=== PATIENT | female | born 1995 | race Caucasian/White ===

== ENCOUNTER 2017-06-25 16:35 | Emergency (ER) | payer BC, MEDICAID | END 2017-06-25 17:38 | disposition home or self-care (01) | LOC: E/R 16:35 | DX: M25.562 Pain in left knee (principal); J45.909 Unspecified asthma, uncomplicated | CPT/HCPCS: 73562; 99283-25 ==

== ENCOUNTER 2018-07-27 12:03 | Emergency (ER) | payer BC ==
[2018-07-27] MEDS: IBUPROFEN 600 MG TAB PO (14:23)
[2018-07-27] MEDS: CYCLOBENZAPRINE 10 MG TAB PO (14:28)
== END 2018-07-27 15:10 | disposition home or self-care (01) ==
LOC: FTE 12:03
DX: M62.838 Other muscle spasm (principal); J45.909 Unspecified asthma, uncomplicated
CPT/HCPCS: 81025; 99283